=== PATIENT | female | born 1970 | race Caucasian/White ===

== ENCOUNTER 2016-05-21 06:11 | Day surgery (SDC) ==
[~2016-05-21 06:11] MED LIST: LR 1,000 ML ONE
[2016-05-21] MEDS ORDERED: MYLICON DROPS (DOSE) MISC ONE (07:01)
[2016-05-21 07:41] VITALS: BP 111/68
--- NOTE | 2016-05-21 07:48 | OPERATIVE NOTE ---
PROCEDURE DATE: 05/21/2016 PROCEDURE PERFORMED: Esophagogastroduodenoscopy. HISTORY AND REASON FOR PROCEDURE: This patient has epigastric pain radiating to the middle of the back and also heartburn since about 3 months. Prilosec did not help. Ultrasound of the gallbladder was negative. Medications were all given by the anesthesiologist. Patient was monitored before, during, and after the procedure by them and her condition remained stable. Photos taken from the distal esophagus, the fundus of the stomach, and the antrum. Specimens from the antrum x2 for ruling out Helicobacter pylori infection. DESCRIPTION OF PROCEDURE: The patient was kept in the left lateral decubitus position. A bite block applied. Premedication was given. The Olympus videoscope was introduced into the throat, advanced to the esophagus. The esophagus was then insufflated. The mucosa in the upper esophagus, mid esophagus, and lower esophagus appeared normal. There was a 1 cm sliding hiatus hernia present. The scope was advanced without any difficulty into the stomach. There was some clear debris which was aspirated and removed. The scope was immediately taken down to the antrum. The antrum had erosions present throughout the antrum, more towards the prepyloric area. Pylorus admitted the scope without any difficulty. Duodenal bulb and second part of the duodenum appeared normal. The scope was withdrawn to the stomach, retroflexed. The angularis, lesser curvature, and greater curvature were all examined carefully. There were erosions in the body of the stomach, both on the greater curvature and lesser curvature. The fundus appeared normal after air was taken out from the patient's stomach and scope was removed from the patient. IMPRESSION: 1. Erosive gastritis. 2. Hiatus hernia. RECOMMENDATION: Protonix 40 mg daily. Anti-reflex measures. Patient will see me in the office in 2 weeks' time. At that time, we will discuss the biopsy results.
[2016-05-21] MEDS ORDERED: DIPRIVAN 1% ONE (08:06)
[2016-05-21] MEDS ORDERED: XYLOCAINE-MPF 2% ONE (08:13)
== END 2016-05-21 07:49 | disposition home or self-care (01) ==
LOC: ENDO 06:11
PROVIDERS: ATTEND Internal Medicine Gastroenterology
DX: R10.13 Epigastric pain (principal); K29.00 Acute gastritis without bleeding; K44.9 Diaphragmatic hernia without obstruction or gangrene; E78.00 Pure hypercholesterolemia, unspecified; E66.9 Obesity, unspecified
CPT/HCPCS: 88305; 88312; J7120